=== PATIENT | male | born 1985 ===

== ENCOUNTER → 2017-06-25 21:31 | Emergency (ER) | payer OTHER ==
[2017-06-25 21:42] VITALS: BP 102/62
--- NOTE | 2017-06-25 22:14 | ED ---
Head Injury - HPI Summary HPI Summary: 31M presents with head injury today. He states that he tripped and hit head on his furniture. He has small laceration on scalp. He states his tetanus is up to date. He denies any LOC. minimal headache. minimal bleeding from area. he denies any photophobia, n/v, dizziness or change in vision. he has not taken anything for pain. He denies any neck pain. - History Of Current Complaint Chief Complaint: EDHeadInjury Stated Complaint: HEAD INJURY Time Seen by Provider: 06/25/17 21:43 Pain Intensity: 3 - Allergies/Home Medications Allergies/Adverse Reactions: Allergies Allergy/AdvReac Type Severity Reaction Status Date / Time No Known Allergies Allergy Verified 06/25/17 22:03 PMH/Surg Hx/FS Hx/Imm Hx Endocrine/Hematology History: Denies: Hx Anticoagulant Therapy Cardiovascular History: Denies: Hx Hypertension - Immunization History Date of Tetanus Vaccine: within 5 years Infectious Disease History: No Infectious Disease History: Denies: Traveled Outside the in Last 30 Days - Family History Known Family History: Negative: Seizure Disorder - Social History Alcohol Use: None Substance Use Type: Reports: None Smoking Status (MU): Never Smoked Tobacco Review of Systems Negative: Fever Negative: Chest Pain Negative: Shortness Of Breath Positive: Other - scalp laceration Positive: Headache All Other Systems Reviewed And Are Negative: Yes Physical Exam Triage Information Reviewed: Yes Vital Signs On Initial Exam: Initial Vitals Temp Pulse Resp BP Pulse Ox 97.2 F 80 18 102/62 99 06/25/17 21:40 06/25/17 21:40 06/25/17 21:40 06/25/17 21:40 06/25/17 21:40 Vital Signs Reviewed: Yes Appearance: Positive: Well-Appearing Skin: Positive: Warm, Dry, Other - 1/2cm superficial laceration of scalp Head/Face: Positive: Normal Head/Face Inspection, Other - no step off, racoon eyes, vargas sign Eyes: Positive: Normal, EOMI, TC, Conjunctiva Clear ENT: Positive: Normal ENT inspection, Pharynx normal, TMs normal Neck: Positive: Supple, Nontender, No Lymphadenopathy Respiratory/Lung Sounds: Positive: Clear to Auscultation, Breath Sounds Present Cardiovascular: Positive: Normal, RRR Abdomen Description: Positive: Nontender, Soft Bowel Sounds: Positive: Present Musculoskeletal: Positive: Normal Neurological: Positive: Sensory/Motor Intact, Alert, Oriented to Person Place, Time, CN Intact II-III Psychiatric: Positive: Normal - Cindy Coma Scale Coma Scale Total: 15 Procedures - Laceration/Wound Repair 1 Location: head Description: Linear Length, Depth and Shape: 1/2cm superficial Irrigated w/ Saline (ccs): 30 Laceration/Wound Explored: clean, no foreign body removed Closure: [place] #__ - 1 Diagnostics - Vital Signs Vital Signs Temp Pulse Resp BP Pulse Ox 06/25/17 21:40 97.2 F 80 18 102/62 99 - Laboratory Lab Statement: Any lab studies that have been ordered have been reviewed, and results considered in the medical decision making process. Head Injury Course/Dx Course Of Treatment: 31M presents with head injury today. He states that he tripped and hit head on his furniture. He has small laceration on scalp. He states his tetanus is up to date. He denies any LOC. minimal headache. minimal bleeding from area. he denies any photophobia, n/v, dizziness or change in vision. he has not taken anything for pain. He denies any neck pain. on exam normal neuro exam. small 1/2cm superficial laceration of scalp that placed 1 staple in. warned of signs to return to ED for. patient understand and agrees with plan. - Diagnoses Differential Diagnosis/HQI/PQRI: Concussion Without LOC, Contusion, Laceration Provider Diagnoses: Head injury, Scalp laceration Discharge - Discharge Plan Condition: Good Disposition: HOME Patient Education Materials: Head Injury (ED), Staple Care (ED) Referrals: [facility] [place] PHYSICIAN REFERRAL [Outside] Additional Instructions: Take Tylenol or ibuprofen for pain Do not scrub staple area Return to ED, urgent care or primary in 7-10 days to have gerry removed Follow up with primary within 5 days Return to ED if develop signs of infection such as fever, spreading redness, or pus or vomiting or any new or worsening symptoms
== END | disposition home or self-care (01) ==
LOC: ED 21:31
DX: S09.90XA Unspecified injury of head, initial encounter (principal); S01.91XA Laceration without foreign body of unspecified part of head, initial encounter; W01.190A Fall on same level from slipping, tripping and stumbling with subsequent striking against furniture, initial encounter; Y93.9 Activity, unspecified; Y92.9 Unspecified place or not applicable
CPT/HCPCS: 12001; 99281